=== PATIENT | female | born 1995 | race Hispanic/Latino ===

== ENCOUNTER 2017-04-08 19:18 | Outpatient (CLI) | payer MEDICAID ==
[2017-04-08 19:33] VITALS: BP 134/75
[2017-04-08 20:37] LABS: Bacteria,Urine 1+ /HPF (Negative); Bilirubin,Urine NEG (Negative); Blood,Urine NEG (Negative); Ketones,Urine NEG (Negative); Leukocyte Esterase,Urine NEG (Negative); Mucus,Urine FEW /HPF; Nitrite,Urine NEG (Negative); Protein,Urine <15 mg/dL mg/dL (Negative); Urobilinogen,Urine < 2.0 mg/dL (<2.0)
[2017-04-08] MEDS ORDERED: LACTATED RINGERS 1,000 ML IV ONE (21:00)
== END 2017-04-08 20:48 | disposition home or self-care (01) ==
LOC: TRG 19:18
PROVIDERS: ATTEND Obstetrics & Gynecology
DX: O47.03 False labor before 37 completed weeks of gestation, third trimester (principal); Z3A.34 34 weeks gestation of pregnancy
CPT/HCPCS: 81001; 96360; J7120

== ENCOUNTER 2017-04-16 22:13 | Outpatient (CLI) | payer MEDICAID ==
[2017-04-16 22:31] VITALS: BP 118/65
[2017-04-16] MEDS ORDERED: LACTATED RINGERS 500 ML IV ONE (22:36)
--- NOTE | 2017-04-16 22:44 | Event Note ---
Date: 04/16/17 (leaking) patient to triage @ 35 weeks w/ c/o leaking fluid from vaginal while sitting on toilet. Nitrazine negative. no active fluid leaking, pad dry in bed. fern neg. SVE c/50/-3 head balotable. no fluid leaking noted with exam or cough. frequent movement, no ctx palpated during assessment. FHT CAT 1. Plan for u/s EUGENE. if normal may d/c home with routine f/u in office.
[2017-04-16] MEDS ORDERED: VISTARIL PO ONE (23:05)
--- NOTE | 2017-04-17 07:52 | Ultrasound Report ---
ULTRASOUND OB LIMITED History: well being, evaluate amniotic fluid Technique: Transabdominal ultrasound with Doppler interrogation. Gestation: Single Position: Cephalic Amniotic Fluid: Normal EUGENE = 12.0 cm Heart Rate: 133 BPM
== END 2017-04-16 23:15 | disposition home or self-care (01) ==
LOC: TRG 22:13
PROVIDERS: ATTEND Obstetrics & Gynecology
DX: O42.92 Full-term premature rupture of membranes, unspecified as to length of time between rupture and onset of labor (principal); Z3A.35 35 weeks gestation of pregnancy
CPT/HCPCS: 59025; 76815; Q0177

== ENCOUNTER 2017-05-20 05:42 | Outpatient (CLI) | payer MEDICAID ==
[2017-05-20 06:56] LABS: Urine Drugs of Abuse Note Disclamer
[2017-05-20 07:30] VITALS: BP 114/66
== END 2017-05-20 07:55 | disposition home or self-care (01) ==
LOC: TRG 05:42
PROVIDERS: ATTEND Obstetrics & Gynecology
DX: O48.0 Post-term pregnancy (principal); Z3A.40 40 weeks gestation of pregnancy
CPT/HCPCS: 59025; 80307

== ENCOUNTER 2018-03-26 08:55 | Day surgery (SDC) | payer MEDICAID ==
[2018-03-26] MEDS ORDERED: XYLOCAINE MPF 2% ONE (10:24)
[2018-03-26] MEDS ORDERED: DIPRIVAN 10 MG/ML IV ONE (10:24)
[2018-03-26] MEDS ORDERED: SUBLIMAZE ONE (10:24)
[2018-03-26] MEDS ORDERED: MONSEL'S TP ONE ×2 (10:28→11:00)
[2018-03-26] MEDS ORDERED: SILVER NITRATE TP ONE (10:28)
[2018-03-26] MEDS ORDERED: XYLOCAINE 1%/ EPI 1:100,000 INFILTRATI ONE (10:28)
[2018-03-26] MEDS ORDERED: LUGOL'S SOLUTION 5% TP ONE ×2 (10:28→11:00)
[2018-03-26] MEDS ORDERED: ACETIC ACID 3% SOLN TP ONE (10:29)
[2018-03-26] MEDS ORDERED: LACTATED RINGERS 1,000 ML ONE (10:32)
--- NOTE | 2018-03-26 10:58 | Anesthesia Day of Surgery ---
Anesthesia Day of Surgery - Day of Surgery Patient Examined: Yes Patient H&P Reviewed: Yes Patient is NPO: Yes
[2018-03-26] MEDS ORDERED: ZOFRAN IV PRN ×2 (10:59→12:39)
[2018-03-26] MEDS ORDERED: DILAUDID IV PRN (10:59)
--- NOTE | 2018-03-26 10:59 | Anesthesia Consultation ---
Anesthesia Consult and Med Hx Date of service: 03/26/18 - Airway Anesthetic Teeth Evaluation: Good ROM Head & Neck: Adequate Mental/Hyoid Distance: Adequate Mallampati Class: Class I Intubation Access Assessment: Good - Pulmonary Exam CTA: Yes - Cardiac Exam Cardiac Exam: RRR - Pre-Operative Health Status ASA Pre-Surgery Classification: ASA1 Proposed Anesthetic Plan: General (Breast Feeding. GA with LMA ok. Denies GERD) - Pulmonary Hx Smoking: Yes (4 cig/day) Hx Asthma: No COPD: No Hx Pneumonia: No Hx Sleep Apnea: No - Cardiovascular System Hx Hypertension: No - Central Nervous System Hx Seizures: No Hx Psychiatric Problems: No - Gastrointestinal Hx Gastroesophageal Reflux Disease: No - Endocrine Hx Renal Disease: No Hx Insulin Dependent Diabetes: No Hx Hypothyroidism: No Hx Hyperthyroidism: No - Hematic Hx Anemia: No Hx Sickle Cell Disease: No - Other Systems Hx Alcohol Use: No Hx Cancer: No Hx Obesity: No
[2018-03-26] MEDS ORDERED: LACTATED RINGERS 1,000 ML IV SCH ×2 (11:00)
--- NOTE | 2018-03-26 11:42 | Operative Report ---
Operative Report Operative Report: Preoperative diagnosis: Mod-severe cervical dysplasia. Postoperative diagnosis: same. Procedure: LEEP of the crevix. Surgeon: Dr. Weiss. Mimeograph Operator: none Anesthesia: IV sedation EBL: none IVF: RL 1 liter. Procedure details: Risks, benefits, and alternatives of the procedure were discussed in detail with the patient which included but not limited to the risk of infection, hemorrhage requiring blood transfusion, shortened cervix which can result in cervical incompetence and the need for cerclage in future pregnancies. The patient expressed understanding, her questions were answered, and she gave informed consent. The patient was taken to the operating room with an IV fluid infusing ringers lactate. In the operating room, she was placed in a dorsal supine position and given IV sedation with MAC. Then, she was placed on the stirrups in the dorsolithotomy position. The perineum, vagina and cervix were washed and she was prepared and draped in usual sterile fashion. A weighted speculum was placed under posterior vaginal wall. Lugol's solution was applied to the cervix. The dysplastic area were visible. The cautery was used to perform the LEEP procedure and the specimen was sent to pathology. The base of the cervix was cauterized using the Bovie. Monsel's solution was applied. The counts of laps, needles, sponges, and instruments were correct 2. The patient tolerated the procedure well. She was awakened from the anesthesia and taken to the recovery room in a stable condition.
--- NOTE | 2018-03-26 12:23 | Post Anesthesia Evaluation ---
- Post Anesthesia Evaluation Patient Participated: Yes Airway Patent: Yes Stable Respiratory Function: Yes Nausea/Vomiting: No Temp > 96.8F: Yes Pain Manageable: Yes Adequeate Hydration: Yes Anesthesia Complications: No
[2018-03-26] MEDS ORDERED: ZOFRAN ONE (12:39)
[2018-03-26 12:50] VITALS: BP 115/61
== END 2018-03-26 13:40 | disposition home or self-care (01) ==
LOC: OR 08:55
PROVIDERS: ATTEND Obstetrics & Gynecology
DX: D06.9 Carcinoma in situ of cervix, unspecified (principal); F17.210 Nicotine dependence, cigarettes, uncomplicated; Z90.49 Acquired absence of other specified parts of digestive tract; Z98.41 Cataract extraction status, right eye; Z98.890 Other specified postprocedural states
CPT/HCPCS: 57522; 81025; 88305; J1170; J2405; J2704; J3010; J7120; 88307